=== PATIENT | female | born 1965 | race African-American/Black ===

== ENCOUNTER 2021-04-01 09:41 | Observation (INO) ==
[2021-04-01] MEDS ORDERED: ALBUTEROL 2.5 MG/3 ML NEB RESP TX STA (10:17)
[2021-04-01] MEDS ORDERED: DEXAMETHASONE 4 MG/1 ML VIAL IV STA (10:23)
[2021-04-01 10:34] LABS: Hematocrit 44.4 VOL% (35.7-47.0); Hemoglobin 13.9 GM/DL (12.0-16.0); Immature Granulocytes % 0.5 %; Immature Granulocytes Absolute 0.03 #; Lymphocytes # 0.3 10*3/uL (1.4-4.0); Lymphocytes % 4.8 % (21.3-54.2); Mean Corpuscular HGB Conc 31.3 GM/DL (32-36); Mean Corpuscular Volume 84.6 FL (87-102); Mean Platelet Volume 12.8 FL (9.6-12.0); Monocytes % 3.8 % (1.7-12.7); Neutrophils % 90.9 % (38.7-73.9); Platelet Count 200 T/CUMM (130-400); Red Blood Count 5.25 MC/CUMM (3.8-5.5); Red Cell Distribution Width 14.7 % (9.3-17.3); White Blood Count 5.8 T/CUMM (4-12)
[2021-04-01 10:54] LABS: Lymphocytes 1 % (20-55); Platelet Estimate Adequate; Segmented Neutrophils 97 % (50-85); Total Cells Counted 100
[2021-04-01 10:55] LABS: Hypochromasia Slight; Microcytosis Slight
[2021-04-01 11:54] LABS: Albumin 2.9 G/DL (3.4-5.0); Bilirubin,Total 1.1 MG/DL (0.20-1.00); Calcium 8.5 MG/DL (8.5-10.1); Osmolality,Calculated 275.5 MOS/KG (273-304); Potassium 3.2 MMOL/L (3.5-5.1); Total Protein 9.2 G/DL (6.4-8.2)
[2021-04-01] MEDS ORDERED: POTASSIUM CHLORIDE 20 MEQ TABLET PO ONE (12:27)
[2021-04-01] MEDS ORDERED: hydrALAZINE 20 MG/1 ML VIAL IV PRN (13:49)
[2021-04-01] MEDS ORDERED: ACETAMINOPHEN 325 MG TABLET PO PRN (13:49)
[2021-04-01] MEDS ORDERED: ONDANSETRON 4 MG/2 ML VIAL IV PRN (13:49)
[2021-04-01] MEDS ORDERED: ALUMINUM/MAGNES/SIMETH MAX STR 30 ML UDCUP PO PRN (13:49)
[2021-04-01] MEDS ORDERED: GLUCAGON 1 MG VIAL IM PRN (13:49)
[2021-04-01] MEDS ORDERED: CALCIUM CARBONATE CHEW 500 MG TABLET PO PRN (13:49)
[2021-04-01] MEDS ORDERED: guaiFENesin/DM ER 600-30 MG TABLET PO PRN (13:49)
[2021-04-01] MEDS ORDERED: DOCUSATE SODIUM 100 MG CAPSULE PO PRN (13:49)
[2021-04-01] MEDS ORDERED: DEXTROSE 50% 25 GM/50 ML VIAL IV PRN (13:49)
[2021-04-01] MEDS ORDERED: MELATONIN 3 MG TABLET PO PRN (13:54)
[2021-04-01] MEDS ORDERED: ENOXAPARIN 40 MG/0.4 ML SYRINGE SUBCUT SCH (14:00)
[2021-04-01] MEDS ORDERED: cefTRIAXone 1,000 MG in SODIUM CHLORIDE 0.9% 100 ML IV SCH (14:00)
[2021-04-01] MEDS ORDERED: AZITHROMYCIN INJ 500 MG in SODIUM CHLORIDE 0.9% 250 ML IV SCH (14:00)
[2021-04-01 14:32] LABS: Ferritin 58.8 ng/mL (8-252)
[2021-04-01] MEDS: CHOLECALCIFEROL 1,000 UNIT TABLET PO SCH (17:03)
[2021-04-01] MEDS: CETIRIZINE 10 MG TABLET PO SCH (17:04)
[2021-04-01] MEDS: ZINC GLUCONATE 50 MG TABLET PO SCH (17:04)
[2021-04-01] MEDS: ASCORBIC ACID 500 MG TABLET PO SCH (21:03)
[2021-04-02 06:15] LABS: Hematocrit 40.7 VOL% (35.7-47.0); Hemoglobin 12.7 GM/DL (12.0-16.0); Immature Granulocytes % 1.6 %; Immature Granulocytes Absolute 0.04 #; Lymphocytes # 0.4 10*3/uL (1.4-4.0); Lymphocytes % 14.6 % (21.3-54.2); Mean Corpuscular HGB Conc 31.2 GM/DL (32-36); Mean Corpuscular Volume 84.3 FL (87-102); Mean Platelet Volume 11.7 FL (9.6-12.0); Monocytes % 9.9 % (1.7-12.7); Neutrophils % 73.9 % (38.7-73.9); Platelet Count 205 T/CUMM (130-400); Red Blood Count 4.83 MC/CUMM (3.8-5.5); Red Cell Distribution Width 14.2 % (9.3-17.3); White Blood Count 2.5 T/CUMM (4-12)
[2021-04-02 06:33] LABS: Calcium 8.4 MG/DL (8.5-10.1); Osmolality,Calculated 271.1 MOS/KG (273-304); Potassium 4.1 MMOL/L (3.5-5.1)
[2021-04-02 08:38] VITALS: BP 150/85
[2021-04-02] MEDS ORDERED: DEXAMETHASONE 4 MG/1 ML VIAL IV SCH (09:00)
[2021-04-02] MEDS ORDERED: PANTOPRAZOLE 40 MG TABLET PO SCH (09:00)
[2021-04-02] MEDS: CHOLECALCIFEROL 1,000 UNIT TABLET PO SCH (09:21)
[2021-04-02] MEDS: ZINC GLUCONATE 50 MG TABLET PO SCH (09:21)
[2021-04-02] MEDS: CETIRIZINE 10 MG TABLET PO SCH (09:22)
[2021-04-02] MEDS: ASCORBIC ACID 500 MG TABLET PO SCH (09:22)
== END 2021-04-02 12:00 | disposition home health service (06) ==
LOC: EDUNIT# → N.ED 09:41 → N.EDINP 09:41 → N.2E 15:45
PROVIDERS: ADMIT Internal Medicine; ATTEND Internal Medicine